=== PATIENT | male | born 1990 | race Caucasian/White ===

== ENCOUNTER 2018-11-17 13:39 | Emergency (ER) | payer OTHER ==
[~2018-11-17] VITALS: Ht 175.3 cm; Wt 90.9 kg
--- NOTE | 2018-11-17 14:51 | REP ---
RIGHT HAND SERIES, FOUR VIEWS: Four views of the right hand performed. There is an oblique fracture of the proximal fourth metacarpal. This is minimally displaced. No other acute fracture or dislocation is seen of the visualized osseous structures. Electronically Signed by Kareem Queen MD 11/17/2018 05:31 P
[2018-11-17 14:55] VITALS: BP 128/79
== END 2018-11-17 14:57 | disposition home or self-care (01) ==
LOC: M ED 13:39
DX: S62.391A Other fracture of second metacarpal bone, left hand, initial encounter for closed fracture (principal); W19.XXXA Unspecified fall, initial encounter; Y92.89 Other specified places as the place of occurrence of the external cause